=== PATIENT | female | born 1985 | race African-American/Black ===

== ENCOUNTER 2019-03-29 15:05 | Emergency (ER) | payer OTHER ==
[2019-03-29 15:14] VITALS: BP 139/94; PULSE 72; TEMP 97.9; BMI 22.3
[2019-03-29] MEDS ORDERED: KETOROLAC TROMETHAMINE 30 MG/1 ML VIAL IM ONE (15:14)
--- NOTE | 2019-03-29 15:14 | PDOC ---
Rapid Medical Evaluation Time Seen by Provider: 03/29/19 15:09 Medical Evaluation: 03/29/19 15:12 CC: left patella pain s/p trip and fall PE: No focal findings. Orders: xray, toradol Patient will proceed to ER for continued evaluation. Discharge Disposition - Diagnosis Knee pain - Referrals - Patient Instructions - Post Discharge Activity
--- NOTE | 2019-03-29 16:30 | PDOC ---
History of Present Illness - General Chief Complaint: Injury Stated Complaint: LT.KNEE PAIN Time Seen by Provider: 03/29/19 15:09 - History of Present Illness Initial Comments: 03/29/19 16:29 33-year-old female without comorbidities presents for evaluation of left knee pain after trip and fall Past History - Past Medical History Allergies/Adverse Reactions: Allergies Allergy/AdvReac Type Severity Reaction Status Date / Time No Known Allergies Allergy Verified 03/29/19 15:14 COPD: No - Psycho Social/Smoking Cessation Hx Smoking History: Never smoked Information on smoking cessation initiated: No Hx Alcohol Use: No Drug/Substance Use Hx: No Review of Systems - Review of Systems Musculoskeletal: Yes: Joint Pain *Physical Exam - Vital Signs Last Vital Signs Temp Pulse Resp BP Pulse Ox 97.9 F 72 19 139/94 99 03/29/19 15:11 03/29/19 15:11 03/29/19 15:11 03/29/19 15:11 03/29/19 15:11 - Physical Exam Comments: 03/29/19 16:29 Extensor mechanism is intact. Mild tenderness anteriorly. No instability thigh and calf soft nontender normal hip and ankle range of motion neurovascular intact Medical Decision Making - Medical Decision Making 03/29/19 16:29 X-rays of the left knee show no evidence of fracture trauma or destructive process. There is a left knee contusion weight-bear as tolerated Tylenol Motrin for pain follow-up with Ortho Discharge - Discharge Information Problems reviewed: Yes Clinical Impression/Diagnosis: Knee pain, Contusion of left knee Condition: Stable Disposition: HOME - Admission No - Follow up/Referral Referrals: Cornelius Vázquez DO [Staff Physician] - - Patient Discharge Instructions Additional Instructions: You may weight-bear as tolerated with use of crutches. Follow-up with orthopedics in 1 to 2 days without fail for further evaluation and treatment options. Tylenol Motrin as directed for pain. Return to the emergency room for worsening symptoms. - Post Discharge Activity
== END 2019-03-29 16:59 | disposition home or self-care (01) ==
LOC: JERFT 15:05
DX: S80.02XA Contusion of left knee, initial encounter (principal); W01.0XXA Fall on same level from slipping, tripping and stumbling without subsequent striking against object, initial encounter; Y93.89 Activity, other specified; Y92.89 Other specified places as the place of occurrence of the external cause; Y99.8 Other external cause status
CPT/HCPCS: 73562-TC-LT-FY; 99281-25

== ENCOUNTER 2019-05-10 15:41 | Emergency (ER) | payer OTHER ==
--- NOTE | 2019-05-10 15:47 | PDOC ---
Rapid Medical Evaluation Medical Evaluation: Allergies Allergy/AdvReac Type Severity Reaction Status Date / Time No Known Allergies Allergy Verified 03/29/19 15:14 05/10/19 15:46 I have performed a brief in-person evaluation of this patient. The patient presents with a chief complaint of:R foot injury after a can of food fell onto foot Pertinent physical exam findings:ttp to R great toe extending into foot, no swelling I have ordered the following:xray The patient will proceed to the ED for further evaluation. Discharge Disposition - Diagnosis Foot injury Qualifiers: Encounter type: initial encounter Laterality: right Qualified Code(s): S99.921A - Unspecified injury of right foot, initial encounter - Referrals - Patient Instructions - Post Discharge Activity
[2019-05-10 15:53] VITALS: BP 124/74; PULSE 73; TEMP 98.5; BMI 22.3
--- NOTE | 2019-05-10 19:09 | PDOC ---
History of Present Illness - General Chief Complaint: Injury Stated Complaint: RT FOOT INJURY (RT BIG TOE) Time Seen by Provider: 05/10/19 15:47 - History of Present Illness Initial Comments: 05/10/19 19:07 33-year-old female without comorbidities presents for evaluation of right great toe pain after a can of food fell on her great toe at the [employer] Past History - Past Medical History Allergies/Adverse Reactions: Allergies Allergy/AdvReac Type Severity Reaction Status Date / Time No Known Allergies Allergy Verified 03/29/19 15:14 COPD: No - Immunization History Immunization Up to Date: Yes - Psycho Social/Smoking Cessation Hx Smoking History: Never smoked Information on smoking cessation initiated: No Hx Alcohol Use: No Drug/Substance Use Hx: No Review of Systems - Review of Systems Musculoskeletal: Yes: Joint Pain *Physical Exam - Vital Signs Last Vital Signs Temp Pulse Resp BP Pulse Ox 98.5 F 73 16 124/74 100 05/10/19 15:50 05/10/19 15:50 05/10/19 15:50 05/10/19 15:50 05/10/19 15:50 - Physical Exam 05/10/19 19:07 Right foot and great toe skin color and temperature normal range of motion is full tenderness at a proportion to examination right great toe no gross sensorimotor deficits neurovascular intact. Medical Decision Making - Medical Decision Making 05/10/19 19:07 No fracture trauma or destructive process on radiograph today. Discharge - Discharge Information Problems reviewed: Yes Clinical Impression/Diagnosis: Toe contusion Foot injury Qualifiers: Encounter type: initial encounter Laterality: right Qualified Code(s): S99.921A - Unspecified injury of right foot, initial encounter Condition: Stable Disposition: HOME - Admission No - Follow up/Referral Referrals: ON STAFF,NOT [Primary Care Provider] - Cornelius Vázquez DO [Staff Physician] - - Patient Discharge Instructions Additional Instructions: Tylenol and Motrin for pain. You may weight-bear as tolerated. Return to the emergency room for worsening symptoms. Without fail please follow-up with orthopedic surgeon in 2 to 3 days for further evaluation and treatment options. - Post Discharge Activity
== END 2019-05-10 19:27 | disposition home or self-care (01) ==
LOC: JERFT 15:41
PROC: 3E0233Z Introduction of Anti-inflammatory into Muscle, Percutaneous Approach (ICD-10-PCS; principal; 2019-05-10)
DX: S90.111A Contusion of right great toe without damage to nail, initial encounter (principal); W20.8XXA Other cause of strike by thrown, projected or falling object, initial encounter; Y93.89 Activity, other specified; Y92.512 Supermarket, store or market as the place of occurrence of the external cause; Y99.8 Other external cause status
CPT/HCPCS: 73630-TC-RT-FY; 99282-25

== ENCOUNTER 2021-04-24 14:00 | Emergency (ER) | payer OTHER ==
[2021-04-24 14:07] VITALS: BP 119/62; PULSE 64; TEMP 99; BMI 22.8
== END 2021-04-24 15:45 | disposition home or self-care (01) ==
LOC: FER 14:00
DX: M25.562 Pain in left knee (principal)
CPT/HCPCS: 73562-TC-LT-FY; 99284-25